=== PATIENT | male | born 1970 | race Two or more races ===

== ENCOUNTER 2025-05-13 04:18 | Emergency (ER) | payer BC, SELFPAY ==
[2025-05-13] VITALS (7 sets, daily range): BP systolic 161–171; BP diastolic 94–112; PULSE 85–92; RESP 17–19; TEMP 36.8; O2SAT 94–96
--- NOTE | 2025-05-13 05:08 | EKG_ITS ---
[facility] Test Date: 2025-05-13 Pat Name: BRIANDA ALEXANDER Department: Room: - Gender: Male [employer]: : 1970 Requested By: Ralph Bolanos Order Number: [id number] Reading MD: Ralph Bolanos Measurements Intervals [place] Rate: 92 P: 14 MI: 150 QRS: -55 QRSD: 87 T: 16 QT: 332 QTc: 412 Interpretive Statements SINUS RHYTHM LEFT AXIS DEVIATION [QRS AXIS < -30] PATTERN CONSISTENT WITH PULMONARY DISEASE NONSPECIFIC T-WAVE ABNORMALITY No previous ECG available for comparison /[id number]
--- NOTE | 2025-05-13 05:09 | PD.EDARRY ---
ED Arrhythmia Palp. RME/HPI General Chief Complaint: General Adult/Misc Complain Stated Complaint: HIGH BP Time Seen by Provider: 05/13/25 04:24 Source: patient Arrival date/time: 05/13/25 04:18 55-year-old male with a history of hypertension presents to the emergency room with a chief complaint of left-sided sternal chest pain that radiates to his left arm, palpitations, and high blood pressure x 6 days Mode of arrival: ambulatory Limitations: no limitations Related Data Previous Rx's ?Medication ?Instructions ?Recorded acetaminophen-caffeine 500 mg-65 1 tab PO Q8H PRN pain #30 tabs 05/13/25 mg tablet (Excedrin Tension Headache) lisinopril 20 1 tab PO QDAY 30 days #30 tabs 05/13/25 mg-hydrochlorothiazide 25 mg tablet Allergies Allergy/AdvReac Type Severity Reaction Status Date / Time No Known Allergies Allergy Verified 05/13/25 04:19 Review of Systems Review of Systems Systems Reviewed: All systems reviewed, normal except as documented Constitutional Constitutional: Reports system reviewed and no additional complaints, except as documented, Denies fatigue, Denies fever(s), Denies headache(s) and Denies weakness Eyes Eyes: Reports system reviewed and no additional complaints, except as documented, Denies blurry vision and Denies change in vision ENT Ears, Nose, Mouth, and Throat: Reports system reviewed and no additional complaints, except as documented, Denies otalgia, Denies headache(s), Denies nasal congestion, Denies throat swelling and Denies vertigo Cardiovascular Cardiovascular: Reports system reviewed and no additional complaints, except as documented, Reports chest pain, Reports chest pain with activity, Denies dyspnea, Denies dyspnea on exertion and Reports palpitations Respiratory Respiratory: Reports system reviewed and no additional complaints, except as documented, Denies chest congestion, Denies cough, Denies dyspnea, Denies dyspnea on exertion and Denies wheezing Gastrointestinal Gastrointestinal: Reports system reviewed and no additional complaints, except as documented, Denies abdominal pain, Denies cramping, Denies nausea and Denies vomiting Genitourinary Genitourinary: Reports system reviewed and no additional complaints, except as documented, Denies dysuria and Denies hematuria Musculoskeletal Musculoskeletal: Reports system reviewed and no additional complaints, except as documented and Denies back pain Integumentary/Breasts Skin/Breast: Reports system reviewed and no additional complaints, except as documented and Denies wounds Neurologic Neurologic: Reports system reviewed and no additional complaints, except as documented, Denies confusion, Denies headache(s), Denies lack of coordination, Denies vertigo and Denies weakness Psychiatric Psychiatric: Reports system reviewed and no additional complaints, except as documented, Denies anxiety, Denies confusion, Denies depression, Denies paranoia, Denies suicidal ideation and Denies tactile hallucinations Endocrine Endocrine: Reports system reviewed and no additional complaints, except as documented, Denies fatigue and Reports palpitations Hematologic/Lymphatic Hematologic/Lymphatic: Reports system reviewed and no additional complaints, except as documented and Denies lymphadenopathy Allergic/Immunologic Allergic/Immunologic: Reports system reviewed and no additional complaints, except as documented, Denies throat swelling, Denies urticaria and Denies wheezing Past Medical History Social History SMOKING STATUS: Never smoker ED Exam General Limitations: Present no limitations General appearance: Present alert and in no apparent distress Head Head exam: Present atraumatic Eye Eye exam: Present normal appearance, PERRL and EOMI ENT ENT exam: Present normal exam, normal oropharynx and mucous membranes moist Neck Neck exam: Present normal inspection, full ROM and trachea midline Chest Chest inspection: Present normal inspection and symmetric chest wall rise Respiratory Respiratory exam: Present normal lung sounds bilaterally; Absent respiratory distress, wheezes, stridor, accessory muscle use or prolonged expiratory phase Cardiovascular Cardiovascular exam: Present regular rate, normal rhythm, normal heart sounds, +S1 and +S2; Absent bradycardia, tachycardia, irregular rhythm, systolic murmur, diastolic murmur, rubs, gallop, clicks or JVD Abdominal Exam Abdominal exam: Present soft and normal bowel sounds Extremities Exam Extremities exam: Present normal inspection and full ROM Back Exam Back exam: Present normal inspection and full ROM Neurological Exam Neurological exam: Present alert, oriented X3 and CN II-XII intact Psychiatric Psychiatric exam: Present normal affect and normal mood Skin Skin exam: Present warm, dry, intact and normal color Course Quality Measures none Orders Category Date Time Status EKG (ED ONLY) *Do not use* NOW Care 05/13/25 05:08 Active EKG (ED Only) Stat Exams 05/13/25 05:08 Ordered B-Type Natriuretic Peptide Stat Lab 05/13/25 05:08 Ordered CBC Stat Lab 05/13/25 05:08 Ordered Comprehensive Metabolic Panel Stat Lab 05/13/25 05:08 Ordered Free T4 (Free Thyroxine) Stat Lab 05/13/25 05:08 Ordered TSH [Thyroid Stimulating Hormone] Stat Lab 05/13/25 05:08 Ordered Troponin I Stat Lab 05/13/25 05:08 Ordered Urinalysis, C/S if Indicated Stat Lab 05/13/25 05:08 Ordered cloNIDine HCL [Catapres] Med 05/13/25 05:09 Once 0.1 mg PO X1 ONE Arrhythmia/Palpitations MDM Narrative MDM Narrative:: 55-year-old male with a history of hypertension presents to the emergency room with a chief complaint of left-sided sternal chest pain that radiates to his left arm, palpitations, and high blood pressure x 6 days Patient is hemodynamically stable and in no apparent distress Physical examination shows clear bilateral lung sounds there is no wheezing or any abnormal breath sounds. The patient has a strong and regular rhythm S1 and S2 noted no JVD no clicks no murmurs. EKG was completed and shows normal sinus rhythm at [address] deviation. Prior to discharge another EKG was completed which was also normal sinus rhythm CBC CMP troponin BNP were all within normal limits. The patient is hypertensive episode was managed with clonidine initially and his blood pressure did not drop. Hydralazine was then given with no improvement. An intravenous was then placed and the patient was given IV hydralazine with significant improvement to his blood pressure. Patient then felt a little dizzy I consulted my attending physician Dr. Meredith and his recommendations were to give the patient a 500 mL bolus and a little bit of Ativan. The patient has significant improvement in his symptoms and was discharged Patient data External records reviewed:: [facility] previous records Clinical information provided by:: patient Social determinants that could affect healthcare access:: none Patient has the following chronic illnesses:: Hypertension How is presenting disease/condition affected by chronic disease/condition?: caused by Evaluation data The following diagnostics were reviewed and interpreted by me:: lab results and radiology exam(s) Lab and/or radiology exams considered but not ordered:: Labs and radiology exams considered and ordered Interpretation Summary: N/A Medications / Prescriptions Medications or Prescriptions considered but not ordered:: Medication given Medication administrations:: Medication Administration History Clonidine (Clonidine Hcl 0.1 Mg Tablet) 0.1 mg PO X1 ONE Stop: 05/13/25 05:10 Consultations Consultation(s) initiated? (list below): No Diagnosis Differential diagnosis arrhythmia/palpitations: palpitations and other (Asymptomatic hypertensive urgency/hypertensive emergency) Most likely diagnosis given after review of the tests above:: Asymptomatic hypertensive urgency Admission Indicated Admission indicated?: not indicated Admission Request Was there a request for admission?: No Disposition Plan Disposition Plan: Discharge Discharge Attestation Discharge Attestation: The patient and all family members were given an opportunity to ask questions and understood the discharge instructions. Discharge instructions specifically effects, indications for sooner follow up or return to the emergency department, and the expected course of current diagnosis. Patient condition: Stable Discharge Plan Plan Patient Disposition: HOME (Self Care) Discharge Disposition comment: Stable Prescriptions/Referrals Prescriptions/Med Rec: New lisinopril-hydrochlorothiazide 20-25 mg tablet 1 tab PO QDAY 30 Days Qty: 30 0RF Excedrin Tension Headache 500-65 mg tablet 1 tab PO Q8H PRN (Reason: pain) Qty: 30 0RF Referrals: Loc Mcneill MD [Primary Care Provider, Family Practice] - In 1 week Problem List Clinical Impression: Asymptomatic hypertensive urgency Patient/Caregiver Discharge Instructions Additional Instructions: Please follow-up with your primary care provider in the next 24 to 48 hours Antihypertensive medication was sent to your pharmacy. Please follow-up with your primary care provider for further titration of your blood pressure medication as you may need more to control your blood pressure For any evidence of worsening signs or symptoms return to the emergency room immediately Print Language: Citizen Of [place] Stand Alone Forms: Sarina Award Info., Work/School Release, Patient Portal Info Letter PA/JAMES Supervising Physician PA/JAMES Supervising Physician: Dr. Meredith
[2025-05-13 06:00] LABS: Basophils # (Auto) 0.0 Thou/mm3 (0.0-0.2); Basophils % (Auto) 0 % (0-2.5); Eosinophils # (Auto) 0.1 Thou/mm3 (0.0-0.5); Eosinophils % (Auto) 1 % (0-10); Hematocrit 37.7 % (41.0-53.0); Hemoglobin 11.0 g/dL (13.5-16.0); Immature Granulocytes Auto 0.11 Thou/mm3 (0.00-0.00); Lymphocytes # (Auto) 3.1 Thou/mm3 (1.0-4.8); Lymphocytes % (Auto) 19 % (10-50); Mean Corpuscular HGB Conc 29.2 g/dl (31.0-37.0); Mean Corpuscular Hemoglobin 19.9 pg (25.0-35.0); Mean Corpuscular Volume 68 fL (80-100); Monocytes # (Auto) 1.4 Thou/mm3 (0.0-0.8); Monocytes % (Auto) 8 % (0-12); Neutrophils # (Auto) 11.8 Thou/mm3 (1.8-7.7); Neutrophils % (Auto) 71 % (37-80); Nucleated Red Blood Cell # 0.00 Thou/mm3 (0.00-0.00); Nucleated Red Blood Cell % 0 /100 WBC (0); Platelet Count 287 Thou/mm3 (140-440); RDW Standard Deviation 42.7 fL (35.1-43.9); Red Blood Count 5.54 Miln/mm3 (4.50-5.90); White Blood Count 16.5 Thou/mm3 (3.8-10.6)
[2025-05-13 06:04] LABS: Collection Type, Urine Clean Catch
[2025-05-13 06:10] LABS: Bilirubin,Urine Negative (Negative); Blood,Urine Negative (Negative); Clarity,Urine Clear (Clear/Hazy); Color,Urine Colorless (Lt Yel-Yel); Culture Indicated,Urine Not Indicated; Glucose, Urine Negative (Negative); Ketones,Urine Negative (Negative); Leukocyte Esterase,Urine Negative (Negative); Nitrite,Urine Negative (Negative); PH,Urine 6.0 (5.0-7.0); Protein,Urine Negative (Neg - Trace); RBC,Urine 2 /hpf (0-3); Specific Gravity,Urine 1.010 (1.001-1.035); Squamous Epithelial Cell,Urine 2 /hpf (0-5); Urobilinogen,Urine Negative mg/dL (0.0-1.0); WBC,Urine < 1 /hpf (0-5)
[2025-05-13 06:27] LABS: B-Type Natriuretic Peptide 43 pg/mL (0-100)
[2025-05-13 06:37] LABS: Alanine Aminotransferase 22 U/L (10-49); Albumin, Serum 4.3 gm/dL (3.5-5.0); Albumin/Globulin Ratio 1.3 (1.2-2.2); Alkaline Phosphatase 78 U/L (46-116); Anion Gap 11 (7-16); Aspartate Amino Transferase 15 U/L (0-34); BUN/Creatinine Ratio 14 Ratio (12-20); Bilirubin,Total 0.4 mg/dL (0.3-1.2); Blood Urea Nitrogen 13 mg/dL (9-23); Calcium 9.0 mg/dL (8.3-10.6); Calcium (Corrected) 9.0 mg/dL (8.5-10.1); Carbon Dioxide 26.6 mMol/L (20.0-31.0); Chloride 103 mMol/L (98-107); Creatinine (Component) 0.9 mg/dL (0.6-1.3); Free T4 (Free Thyroxine) 1.26 ng/dL (0.89-1.76); Globulin 3.3 gm/dL (2.3-3.5); Glucose 116 mg/dL (74-106); Osmolality,Calculated 282 (275-295); Potassium 3.7 mMol/L (3.4-5.1); Sodium 141 mMol/L (136-145); Thyroid Stimulating Hormone 2.49 uIU/mL (0.55-4.78); Total Protein 7.6 gm/dL (5.7-8.2); Troponin I < 0.020 ng/mL (0.0-0.045); eGFR > 60 See Note
[2025-05-13] MEDS: hydrALAZINE INJ 20 MG/ML VIAL 10 MG IVP (08:51)
[2025-05-13] MEDS: SODIUM CHLORIDE 0.9% 500 ML 500 ML 999 ML IV (09:51)
[2025-05-13] MEDS: LORazepam 2 MG/ML VIAL 0.5 MG IVP (09:54)
[2025-05-13 12:37] LABS: Path Review Blood Smear Sent to Pathologist
== END 2025-05-13 12:32 | disposition home or self-care (01) ==
PROVIDERS: Nurse Practitioner Family; Emergency Provider Emergency Medicine; PCP Family Medicine
DX: I16.0 Hypertensive urgency (principal); I10 Essential (primary) hypertension; R94.31 Abnormal electrocardiogram [ECG] [EKG]
CPT/HCPCS: 36415; 80053; 81001; 83880; 84439; 84443; 84484; 85025; 93005; 96361; 96374; 96375; 99284; J0360; J2060; J7999; A9270